=== PATIENT | female | born 1995 | race Asian ===

== ENCOUNTER 2023-09-20 16:59 | Emergency (ER) | payer MEDICAID ==
[~2023-09-20] VITALS: Ht 172.7 cm; Wt 101.2 kg
[2023-09-20 18:26] VITALS: BP 112/74; PULSE 74; RESP 16; O2SAT 97
[2023-09-20] MEDS: TETanus/Pertussis (Acell)/Diphther VAC/PF (Tdap-Adult) 0.5ml syringe IMVAC ONE (19:08)
[2023-09-20] MEDS: LIDOcaine 1% 30ml preserv. free vial IJ STA (19:10)
[2023-09-20 19:47] VITALS: TEMP 97.8
== END 2023-09-20 19:52 | disposition home or self-care (01) ==
LOC: ER 17:01
DX: S91.311A Laceration without foreign body, right foot, initial encounter (principal); X58.XXXA Exposure to other specified factors, initial encounter; Y93.89 Activity, other specified; Y92.89 Other specified places as the place of occurrence of the external cause; Y99.8 Other external cause status
CPT/HCPCS: 12002; 73630; 90471; 90715; 99283; A6446